=== PATIENT | male | born 1965 | race Caucasian/White ===

== ENCOUNTER → 2020-07-13 | Outpatient (CLI) | payer MEDICARE, OTHER ==
[~2020-07-13] MED LIST: ASPIR 8181 MG PO; CLARITIN10 MG PO; COLACE 100MG C100 MG PO; DEBROX15 ML CLAR; DEBROX15 ML OT; DEPAKOTE PO; DEPAKOTE500 MG PO; ECOTRIN81 MG PO; ELAVIL 10 MG TA10 MG PO; ELAVIL 50 MG TA50 MG PO; IBUPROFEN600 MG PO; MOBIC7.5 MG PO; PAXIL20 MG PO; PRILOSEC OTC20 MG PO; PROVENTIL HFA 61 INH INH; PROVENTIL HFA6.7 GM INH; TRAZODONE HCL150 MG PO; TRILEPTAL300 MG PO; VITAMIN D PO; VITAMIN D1000 UNIT PO; ZYPREXA15 MG PO
== END ==
LOC: US 07-07 14:00
DX: N63.41 Unspecified lump in right breast, subareolar (principal)
CPT/HCPCS: 76641-RT

== ENCOUNTER → 2021-07-14 | Outpatient (CLI) | payer MEDICARE, OTHER ==
[2021-07-14 12:33] LABS: RED BLOOD COUNT 5.02 M/UL (4.20-5.50); WHITE BLOOD COUNT 8.8 K/UL (4.5-11.0)
[2021-07-14 13:09] LABS: BUN/CREATININE RATIO 9 (0-10)
[2021-07-15 07:12] LABS: VITAMIN D, 25-HYDROXY 33.8 ng/mL (30.0-100.0)
[2021-07-15 08:17] LABS: THYROXINE (T4) 7.3 ug/dL (4.5-12.0)
== END ==
LOC: LAB 12:03
PROVIDERS: Nurse Practitioner Family
DX: Z12.5 Encounter for screening for malignant neoplasm of prostate (principal); F70 Mild intellectual disabilities; K21.9 Gastro-esophageal reflux disease without esophagitis; E55.9 Vitamin D deficiency, unspecified; R53.83 Other fatigue; E11.9 Type 2 diabetes mellitus without complications; E78.5 Hyperlipidemia, unspecified
CPT/HCPCS: 36415; 80053; 80061; 83036; 84436; 84443; 84480; 85025; G0103

== ENCOUNTER → 2021-12-29 | Outpatient (CLI) | payer MEDICARE, OTHER ==
[2021-12-29 13:00] LABS: HEMOGLOBIN 15.3 gm/dl (14.0-17.5); RED BLOOD COUNT 4.75 M/UL (4.20-5.50); WHITE BLOOD COUNT 9.9 K/UL (4.5-11.0)
[2021-12-29 13:18] LABS: BUN/CREATININE RATIO 8 (0-10)
[2021-12-31 05:08] LABS: THYROXINE (T4) 8.6 ug/dL (4.5-12.0)
== END ==
LOC: LAB 11:53
PROVIDERS: Nurse Practitioner Family
DX: Z13.1 Encounter for screening for diabetes mellitus (principal); K21.9 Gastro-esophageal reflux disease without esophagitis; F41.9 Anxiety disorder, unspecified; F70 Mild intellectual disabilities; E78.5 Hyperlipidemia, unspecified; R53.83 Other fatigue; N40.1 Benign prostatic hyperplasia with lower urinary tract symptoms
CPT/HCPCS: 36415; 80053; 80061; 81001; 83036; 84153; 84436; 84443; 84480; 85025